=== PATIENT | female | born 1950 | race Two or more races ===

== ENCOUNTER 2023-05-20 15:28 | Inpatient (IN) | payer MEDICARE, OTHER ==
[~2023-05-20] VITALS: Ht 157.5 cm; Wt 53.0 kg
[2023-05-20 16:14] LABS: Basophils # (auto) 0 10 ^3/uL (0-0.2); Basophils % (auto) 0.6 % (0.0-2.0); Eosinophils # (auto) 0.1 10 ^3/uL (0-0.8); Eosinophils % (auto) 1.5 % (0.0-7.0); Hematocrit 40.9 % (36.0-46.0); Hemoglobin 13.9 g/dL (12.2-16.2); Lymphocytes # (auto) 3.2 10 ^3/uL (0.4-5.4); Mean Corpuscular Hemoglobin 30.3 pg (28.0-32.0); Mean Corpuscular Hgb Conc. 33.9 g/dL (32.0-36.0); Mean Corpuscular Volume 89.5 fL (80.0-100.0); Monocytes # (auto) 0.8 10 ^3/uL (0-1.3); Monocytes % (auto) 9.2 % (0.0-12.0); Neutrophils # (auto) 4.2 10 ^3/uL (1.6-8.6); Neutrophils % (auto) 50.7 % (37.0-80.0); Red Blood Cells 4.57 10^6/uL (4.0-5.20); Red Cell Distribution Width 14.1 % (11.8-14.3); White Blood Cell 8.3 10^3/uL (4.4-10.8)
[2023-05-20 16:27] LABS: Urine Bacteria NONE SEEN /hpf (None Seen); Urine Blood Negative /uL (Negative); Urine Clarity Clear (Clear); Urine Color Yellow (Yellow); Urine Mucus FEW (None Seen); Urine Protein, UAD Negative (Negative); Urine Specific Gravity 1.015 (1.001-1.035); Urine Urobilinogen Normal (Negative); Urine WBC 2 /hpf (0 - 5); Urine pH 6.5 (5.0-8.0)
[2023-05-20] MEDS ORDERED: ASPirin 325 MG TAB PO ONE (16:30)
[2023-05-20 16:43] LABS: Alanine Aminotransferase 31 U/L (7-40); Albumin 4.5 g/dL (3.2-4.8); Alkaline Phosphatase 64 U/L (46-116); Anion Gap 5 (5-15); Aspartate Aminotransferase 28 U/L (13-40); BUN/Creatinine Ratio 15.9 (10.0-20.0); Bilirubin, Total 0.9 mg/dL (0.2-1.0); Blood Urea Nitrogen 10 mg/dL (9-23); Calcium 10.2 mg/dL (8.5-10.1); Carbon Dioxide 28 mmol/L (20-30); Chloride 106 mmol/L (98-107); Glucose 143 mg/dL (74-106); Potassium 3.9 mmol/L (3.5-5.1); Sodium 139 mmol/L (136-145); Total Protein 7.5 g/dL (5.7-8.2)
[2023-05-20] MEDS ORDERED: MORPHINE SULFATE INJ 2 MG/ml SYRG IV PRN (19:00)
[2023-05-20] MEDS ORDERED: CLOPIDOGREL BISULFATE 75 MG TAB PO ONE (19:00)
[2023-05-20] MEDS ORDERED: ONDANSETRON HCL 4 MG/2 ML VIAL IV PRN (19:00)
[2023-05-20] MEDS ORDERED: NITROGLYCERIN 0.4 MG SL TAB SL PRN (19:00)
[2023-05-20] MEDS ORDERED: LOSA50TA46 PO (20:06)
[2023-05-20] MEDS ORDERED: AMLO1TAB22 PO (20:06)
[2023-05-20] MEDS ORDERED: SODIUM CHLORIDE 0.9% 1,000 ML IV ONE (20:15)
[2023-05-20] MEDS: LOSARTAN POTASSIUM 50 MG TAB PO SCH (21:54)
[2023-05-20] MEDS ORDERED: ATORVASTATIN 20 MG TAB PO SCH (22:00)
[2023-05-21] VITALS (7 sets, daily range): BP systolic 51–146; BP diastolic 33–67; PULSE 60–75; RESP 16–18; TEMP 97.8–98.5; O2SAT 90–97
[2023-05-21] MEDS ORDERED: SIMV10TA20 PO (03:05)
[2023-05-21 07:13] LABS: Basophils # (auto) 0 10 ^3/uL (0-0.2); Basophils % (auto) 0.5 % (0.0-2.0); Eosinophils # (auto) 0.1 10 ^3/uL (0-0.8); Eosinophils % (auto) 1.2 % (0.0-7.0); Hematocrit 42.4 % (36.0-46.0); Hemoglobin 14.2 g/dL (12.2-16.2); Lymphocytes # (auto) 1.5 10 ^3/uL (0.4-5.4); Lymphocytes % (auto) 21.4 % (10.0-50.0); Mean Corpuscular Hemoglobin 30.1 pg (28.0-32.0); Mean Corpuscular Hgb Conc. 33.5 g/dL (32.0-36.0); Mean Corpuscular Volume 89.9 fL (80.0-100.0); Monocytes # (auto) 0.6 10 ^3/uL (0-1.3); Monocytes % (auto) 8.5 % (0.0-12.0); Neutrophils # (auto) 4.9 10 ^3/uL (1.6-8.6); Neutrophils % (auto) 68.4 % (37.0-80.0); Nucleated Red Blood Cells % 0.2 %; Red Blood Cells 4.72 10^6/uL (4.0-5.20); Red Cell Distribution Width 14.2 % (11.8-14.3); White Blood Cell 7.1 10^3/uL (4.4-10.8)
[2023-05-21 07:31] LABS: Alanine Aminotransferase 29 U/L (7-40); Albumin 4.5 g/dL (3.2-4.8); Alkaline Phosphatase 63 U/L (46-116); Anion Gap 9 (5-15); Aspartate Aminotransferase 26 U/L (13-40); BUN/Creatinine Ratio 11.3 (10.0-20.0); Blood Urea Nitrogen 7 mg/dL (9-23); Calcium 9.7 mg/dL (8.5-10.1); Carbon Dioxide 25 mmol/L (20-30); Chloride 106 mmol/L (98-107); Cholesterol 138 mg/dL (< 200); Glucose 145 mg/dL (74-106); HDL Cholesterol 56 mg/dL (40-59); LDL Cholesterol 65 mg/dL (< 100); Potassium 3.8 mmol/L (3.5-5.1); Sodium 140 mmol/L (136-145); Total Protein 7.4 g/dL (5.7-8.2); Triglycerides 81 mg/dL (< 150)
[2023-05-21] MEDS: LOSARTAN POTASSIUM 50 MG TAB PO SCH (09:14)
[2023-05-21] MEDS ORDERED: ASPirin-EC 81 mg tab PO SCH (10:00)
[2023-05-21] MEDS ORDERED: amLODIPine BESYLATE 5 MG TAB PO SCH (10:00)
[2023-05-21] MEDS ORDERED: CLOPIDOGREL BISULFATE 75 MG TAB PO SCH (10:00)
[2023-05-21] MEDS ORDERED: AMLO1TAB23 PO (11:23)
[2023-05-22 09:20] LABS: Hepatitis B Surface Antigen Negative (Negative)
[2023-05-22 09:41] LABS: Hepatitis C Antibody Negative (Negative)
== END 2023-05-21 12:42 | disposition home or self-care (01) | DRG 948 ==
LOC: ER 15:28 → TELE 19:07 → TELE-CENTR 22:40
PROVIDERS: ADMIT Internal Medicine Pulmonary Disease; ATTEND Student in an Organized Health Care Education/Training Program
DX: R53.1 Weakness (principal); I10 Essential (primary) hypertension; E78.5 Hyperlipidemia, unspecified
CPT/HCPCS: 36415; 70450; 70551; 71045; 80053; 80061; 81001; 83036; 83735; 84443; 84484; 85025; 86803; 87340; 93005; 93886; 97163; G0378